=== PATIENT | female | born 1975 | race African-American/Black ===

== ENCOUNTER 2017-07-05 15:01 | Emergency (ER) | payer BC, SELFPAY ==
--- NOTE | 2017-07-05 16:17 | RAD ---
FOUR VIEWS RIGHT KNEE: Date: 07-05-17 History: Injury to right knee after a fall two weeks ago. FINDINGS: There is no evidence of fracture, dislocation, or other osseous abnormality involving the right knee. No joint space narrowing is seen. IMPRESSION: No acute osseous abnormality right knee. POS: [facility]
== END 2017-07-05 16:00 | disposition home or self-care (01) ==
LOC: MADERS 15:01
DX: S80.01XA Contusion of right knee, initial encounter (principal); F32.9 Major depressive disorder, single episode, unspecified; F41.9 Anxiety disorder, unspecified; W19.XXXA Unspecified fall, initial encounter

== ENCOUNTER 2017-09-04 12:53 | Emergency (ER) | payer BC ==
[~2017-09-04 12:53] MED LIST: Sodium Chloride 0.9% 1,000 ML BAG ONE
[2017-09-04 13:23] LABS: Bilirubin Negative (Negative); Blood, Urine Negative (Negative); Clarity Clear (Clear); Glucose, Urine (Dipstick) Negative (Negative); Leukocyte Moderate (Negative); Nitrite Negative (Negative); Protein, Urine (Dipstick) Negative (Neg-Trace); Urobilinogen 0.2 mg/dL (0.2-1.0)
[2017-09-04 13:24] LABS: Specific Gravity, Urine 1.003 (1.002-1.036)
[2017-09-04 13:40] LABS: RBC/HPF 0-3 HPF (0-3)
[2017-09-04 13:41] LABS: Bacteria/HPF Rare-Few HPF (None Seen)
[2017-09-04] MEDS ORDERED: Ondansetron HCl/PF 4 MG/2 ML Vial ONE (13:57)
[2017-09-04] MEDS ORDERED: Morphine 10 MG/ML VIAL ONE (13:57)
[2017-09-04 13:59] LABS: #Basophils 0.1 thou/uL (0.0-0.2); #Lymphocytes 1.9 thou/uL (1.20-3.40); #Monocytes 0.4 thou/uL (0.11-0.59); #Neutrophils 3.1 thou/uL (1.40-6.50); %Basophils 1.2 % (0.0-1.0); %Eosinophils 0.9 % (0.0-10.0); Hemoglobin 12.6 g/dL (12.0-16.0); Mean Corpuscular HGB CONC 32.2 g/dL (32.0-36.0); Mean Corpuscular Hemoglobin 27.7 pg (27.0-31.0); Mean Platelet Volume 6.7 fL (7.4-10.4); Platelet Count 234 thou/uL (130-400); RBC Distribution Width 13.2 % (11.5-14.5); Red Blood Cell (RBC) Count 4.55 mill/uL (4.20-5.40); White Blood Cell (WBC) Count 5.4 thou/uL (4.8-10.8)
[2017-09-04 14:04] LABS: BHCG - Serum Negative (NEGATIVE); Pregs Control Background? CLEAR/WHITE (CLR/WHITE); Pregs Control Bar Appear? YES (CONTROL BAR)
[2017-09-04 14:14] LABS: ALT (SGPT) 12 U/L (8-55); AST (SGOT) 12 U/L (5-34); Albumin 3.8 g/dL (3.5-5.0); Alkaline Phosphatase 55 U/L (40-150); Anion Gap 12 mmol/L (10-20); BUN (Urea Nitrogen) 12 mg/dL (7.0-18.7); Bilirubin, Total 0.3 mg/dL (0.2-1.2); Calc. Creatinine Clearance 0 mL/min (70-130); Carbon Dioxide 22 mmol/L (22-29); Chloride 108 mmol/L (98-107); Estimated GFR-MDRD Greater than 90; Glucose 88 mg/dL (70-105); Lipase 18 U/L (8-78); Potassium 3.8 mmol/L (3.5-5.1); Protein, Total 7.8 g/dL (6.0-8.3); Sodium 138 mmol/L (136-145)
--- NOTE | 2017-09-04 14:27 | CT ---
CT ABDOMEN AND PELVIS WITHOUT CONTRAST: HISTORY: Left lower quadrant abdominal pain. COMPARISON: CT from 2011. FINDINGS: In the right lung base is a small cluster of centrilobular nodules, likely post-infectious in nature series 2 image 4. No pericardial effusion. Prior cholecystectomy. There are multiple nonobstructive left-sided renal calculi measuring up to 3 mm. No hydroureteral nephrosis. No right-sided calculi are appreciated on today's examination. The urinary bladder is unremarkable. Similar to the comparison examination are mildly prominent bilateral superficial inguinal lymph nodes . The aortoiliac contour is nonaneurysmal. Appendix is visualized and is normal. IMPRESSION: 1. Nonobstructive left-sided renal calculi. 2. No hydroureteral nephrosis or secondary evidence for a recently passed stone. 3. Normal appendix. POS: [facility]
[2017-09-04] MEDS ORDERED: diphenhydrAMINE 50 MG/ML VIAL ONE (15:27)
== END 2017-09-04 15:45 | disposition home or self-care (01) ==
LOC: MADERS 12:53
DX: R10.32 Left lower quadrant pain (principal); F41.9 Anxiety disorder, unspecified; F32.9 Major depressive disorder, single episode, unspecified; B20 Human immunodeficiency virus [HIV] disease; Z79.899 Other long term (current) drug therapy
CPT/HCPCS: 36415; 74176; 80053; 81003; 81015; 83690; 84484; 84703; 85025; 87086; 93005; 96361; 96374; 96375; J1200; J2270; J2405; J7050

== ENCOUNTER 2017-09-30 16:06 | Emergency (ER) | payer BC ==
[2017-09-30] MEDS ORDERED: Lorazepam 2 MG/ML VIAL ONE (16:29)
[2017-09-30 16:37] LABS: #Basophils 0.1 thou/uL (0.0-0.2); #Eosinphils 0.1 thou/uL (0.0-0.7); #Lymphocytes 2.7 thou/uL (1.20-3.40); #Monocytes 0.7 thou/uL (0.11-0.59); #Neutrophils 4.7 thou/uL (1.40-6.50); %Basophils 0.9 % (0.0-1.0); %Eosinophils 1.2 % (0.0-10.0); %Lymphocytes 32.8 % (21.0-51.0); %Monocytes 8.3 % (0.0-10.0); %Neutrophils 56.8 % (42.0-75.0); Hemoglobin 12.2 g/dL (12.0-16.0); Mean Corpuscular HGB CONC 33.2 g/dL (32.0-36.0); Mean Corpuscular Hemoglobin 28.9 pg (27.0-31.0); Mean Corpuscular Volume 86.9 fL (78.0-98.0); Mean Platelet Volume 7.3 fL (7.4-10.4); Platelet Count 244 thou/uL (130-400); Red Blood Cell (RBC) Count 4.22 mill/uL (4.20-5.40); White Blood Cell (WBC) Count 8.3 thou/uL (4.8-10.8)
[2017-09-30 16:56] LABS: Bilirubin Negative (Negative); Blood, Urine Moderate (Negative); Clarity Clear (Clear); Glucose, Urine (Dipstick) Negative (Negative); Leukocyte Trace (Negative); Nitrite Negative (Negative); Protein, Urine (Dipstick) Negative (Neg-Trace); Specific Gravity, Urine 1.026 (1.002-1.036); pH, Urine 5.5 (5.0-9.0)
[2017-09-30 16:57] LABS: ALT (SGPT) 11 U/L (8-55); AST (SGOT) 9 U/L (5-34); Albumin 3.7 g/dL (3.5-5.0); Alkaline Phosphatase 68 U/L (40-150); Anion Gap 16 mmol/L (10-20); BUN (Urea Nitrogen) 12 mg/dL (7.0-18.7); Bilirubin, Total 0.4 mg/dL (0.2-1.2); Calc. Creatinine Clearance 0 mL/min (70-130); Calcium 9.2 mg/dL (7.8-10.44); Carbon Dioxide 17 mmol/L (22-29); Chloride 110 mmol/L (98-107); Estimated GFR-MDRD 87; Globulin 3.8 g/dL (2.4-3.5); Glucose 102 mg/dL (70-105); Potassium 3.6 mmol/L (3.5-5.1); Protein, Total 7.5 g/dL (6.0-8.3); Sodium 139 mmol/L (136-145)
[2017-09-30 16:58] LABS: Acetaminophen Less than 6.0 mcg/mL (10.0-30.0); Alcohol Less than 10 mg/dL (Less than 10); Salicylate Less than 8.0 mg/dL (15.0-30.0)
[2017-09-30 17:01] LABS: Bacteria/HPF Rare-Few HPF (None Seen); Crystals/HPF 2+ AMORPH URATES HPF (Negative)
[2017-09-30 17:02] LABS: Amphetamine Not Detected (NotDetected); Barbiturates Screen Not Detected (NotDetected); Benzodiazepine Screen Detected (NotDetected); Cocaine Metabolite Screen Not Detected (NotDetected); Medtox Control Line Valid? VALID (VALID); Methadone Not Detected (NotDetected); Methamphetamine Not Detected (NotDetected); Opiate Screen Not Detected (NotDetected); Oxycodone Screen Not Detected (NotDetected); Phencyclidine (PCP) Not Detected (NotDetected); THC/Cannabinoid Screen Not Detected (NotDetected); Tricyclic Screen Not Detected (NotDetected)
[2017-09-30] MEDS ORDERED: Ketorolac Tromethamine 60 MG/2 ML VIAL ONE (19:42)
== END 2017-09-30 20:50 | disposition home or self-care (01) ==
LOC: MADERS 16:06
DX: F41.9 Anxiety disorder, unspecified (principal); R45.851 Suicidal ideations; Z79.899 Other long term (current) drug therapy; Z79.891 Long term (current) use of opiate analgesic
CPT/HCPCS: 36415; 80053; 80306; 80307; 81003; 81015; 85025; 96372; J1885; J2060

== ENCOUNTER 2017-11-19 22:18 | Emergency (ER) | payer BC ==
[~2017-11-19 22:18] MED LIST changes: +Iopamidol 370 76% 125 ML VIAL FS ONE; +Sodium Chloride 0.9% 100 ML BAG ONE
[2017-11-19] MEDS ORDERED: Lorazepam 2 MG/ML VIAL ONE (23:02)
[2017-11-19] MEDS ORDERED: Prochlorperazine 10 MG/2 ML VIAL ONE (23:03)
[2017-11-19 23:09] LABS: #Basophils 0.1 thou/uL (0.0-0.2); #Eosinphils 0.1 thou/uL (0.0-0.7); #Lymphocytes 2.5 thou/uL (1.20-3.40); #Monocytes 0.7 thou/uL (0.11-0.59); #Neutrophils 6.2 thou/uL (1.40-6.50); %Basophils 0.6 % (0.0-1.0); %Eosinophils 0.9 % (0.0-10.0); %Lymphocytes 26.5 % (21.0-51.0); %Neutrophils 65.1 % (42.0-75.0); Hemoglobin 12.3 g/dL (12.0-16.0); Mean Corpuscular HGB CONC 34.2 g/dL (32.0-36.0); Mean Corpuscular Hemoglobin 30.5 pg (27.0-31.0); Mean Corpuscular Volume 89.2 fL (78.0-98.0); Mean Platelet Volume 7.3 fL (7.4-10.4); Platelet Count 283 thou/uL (130-400); RBC Distribution Width 12.7 % (11.5-14.5); Red Blood Cell (RBC) Count 4.03 mill/uL (4.20-5.40); White Blood Cell (WBC) Count 9.5 thou/uL (4.8-10.8)
--- NOTE | 2017-11-19 23:21 | RAD ---
PORTABLE UPRIGHT FRONTAL CHEST RADIOGRAPH: 11/19/2017 HISTORY: Chest pain. COMPARISON: 08/01/2012 FINDINGS: The lungs are clear. The heart and mediastinal contour is unremarkable. IMPRESSION: No acute findings. POS: [facility]
[2017-11-19 23:27] LABS: ALT (SGPT) 14 U/L (8-55); AST (SGOT) 15 U/L (5-34); Alkaline Phosphatase 54 U/L (40-150); Anion Gap 12 mmol/L (10-20); BUN (Urea Nitrogen) 15 mg/dL (7.0-18.7); Bilirubin, Total 0.3 mg/dL (0.2-1.2); Calc. Creatinine Clearance 0 mL/min (70-130); Carbon Dioxide 23 mmol/L (22-29); Chloride 108 mmol/L (98-107); Estimated GFR-MDRD 67; Globulin 3.7 g/dL (2.4-3.5); Glucose 95 mg/dL (70-105); Protein, Total 7.7 g/dL (6.0-8.3); Sodium 139 mmol/L (136-145)
[2017-11-19 23:28] LABS: CKMB 0.9 ng/mL (0-6.6); Troponin I Less than 0.010 ng/mL (< 0.028)
[2017-11-19] MEDS ORDERED: diphenhydrAMINE 12.5 MG/5 ML UDCUP ONE (23:28)
[2017-11-19] MEDS ORDERED: diphenhydrAMINE 50 MG/ML VIAL ONE (23:29)
[2017-11-19 23:44] LABS: Bilirubin Negative (Negative); Blood, Urine Trace (Negative); Clarity Clear (Clear); Glucose, Urine (Dipstick) Negative (Negative); Leukocyte Trace (Negative); Nitrite Negative (Negative); Protein, Urine (Dipstick) Negative (Neg-Trace); Specific Gravity, Urine 1.015 (1.005-1.030)
[2017-11-19 23:45] LABS: Bacteria/HPF None Seen HPF (None Seen); Pregnancy Test - Urine (BHCG) Negative (Negative); Pregu Control Background? CLEAR/WHITE (CLR/WHITE); Pregu Control Bar Appear? YES (CONTROL BAR); RBC/HPF 0-3 HPF (0-3); Specific Gravity 1.015 (1.002-1.036); WBC/HPF 0-3 HPF (0-3)
--- NOTE | 2017-11-20 08:36 | CT ---
PRELIMINARY REPORT/[facility]/EMERGENTY AFTER-HOURS PROCEDURE CT Angiography Chest With Intravenous Contrast EXAM DATE/TIME: 11/20/2017 12:02 AM CLINICAL HISTORY: 42 years old, female; Pain; Chest pain TECHNIQUE: Axial computed tomographic angiography images of the chest with intravenous contrast using CT angiogr aphy protocol. Coronal and sagittal reformatted images were created and reviewed. MIP reconstructed i mages were created and reviewed. CONTRAST: 120 ml of ISOVUE 370 administered intravenously. COMPARISON: No relevant prior studies available. FINDINGS: Pulmonary arteries: Normal. No pulmonary emboli. Aorta: Normal. No aortic aneurysm. No aortic dissection. Lungs: Cluster of small nodules in the anteromedial left lung apex could be sequela of prior infectio n or could represent active bronchiolitis. Indeterminate 5 mm right lower lobe pulmonary nodule. Pleural space: Normal. No pneumothorax. No pleural effusion. Heart: Normal. No cardiomegaly. No pericardial effusion. Mediastinum: Esophagus is unremarkable. Bones/joints: Unremarkable. No acute fracture. Soft tissues: Unremarkable. Lymph nodes: Unremarkable. No enlarged lymph nodes. Gallbladder and bile ducts: Prior cholecystectomy. IMPRESSION: 1. Cluster of small nodules in the anteromedial left lung apex could be sequela of prior infection or could represent active bronchiolitis. 2. Indeterminate 5 mm right lower lobe pulmonary nodule. Thank you for allowing us to participate in the care of your patient. Dictated and Authenticated by: Blas Paniagua MD 11/20/2017 12:51 AM Central Time ([place] & [place]) FINAL REPORT CTA CHEST: FINDINGS: No evidence of pulmonary embolus identified. There is a 5 mm nodule in the posterior right lung base. There is nonspecific nodularity in the left lung apex. These findings were described on the preliminary report and I am in agreement with that report. POS: [facility]
== END 2017-11-20 01:13 | disposition home or self-care (01) ==
LOC: MADERS 22:18
DX: F41.1 Generalized anxiety disorder (principal); B20 Human immunodeficiency virus [HIV] disease; Z87.442 Personal history of urinary calculi
CPT/HCPCS: 36415; 71045; 71275; 80053; 81003; 81015; 81025; 82553; 84484; 85025; 85379; 93005; 96365; 96366; 96375; J0780; J1200; J2060; J7050

== ENCOUNTER 2017-11-30 00:28 | Emergency (ER) | payer BC ==
[2017-11-30] MEDS ORDERED: Ondansetron HCl/PF 4 MG/2 ML Vial ONE (01:24)
[2017-11-30] MEDS ORDERED: Ketorolac Tromethamine 30 MG/ML VIAL ONE (01:25)
[2017-11-30 01:41] LABS: Bilirubin Negative (Negative); Blood, Urine Trace (Negative); Clarity Other (Clear); Glucose, Urine (Dipstick) Negative (Negative); Leukocyte Moderate (Negative); Nitrite Negative (Negative); Protein, Urine (Dipstick) Trace mg/dL (Neg-Trace); Specific Gravity, Urine 1.025 (1.005-1.030); pH, Urine 5.5 (5.0-9.0)
[2017-11-30 01:43] LABS: #Basophils 0.1 thou/uL (0.0-0.2); #Eosinphils 0.1 thou/uL (0.0-0.7); #Lymphocytes 2.3 thou/uL (1.20-3.40); #Monocytes 0.7 thou/uL (0.11-0.59); #Neutrophils 4.6 thou/uL (1.40-6.50); %Basophils 1.1 % (0.0-1.0); %Eosinophils 0.8 % (0.0-10.0); %Lymphocytes 29.7 % (21.0-51.0); %Monocytes 9.1 % (0.0-10.0); %Neutrophils 59.2 % (42.0-75.0); Hemoglobin 12.6 g/dL (12.0-16.0); Mean Corpuscular Hemoglobin 29.3 pg (27.0-31.0); Mean Corpuscular Volume 91.4 fL (78.0-98.0); Mean Platelet Volume 7.1 fL (7.4-10.4); Platelet Count 306 thou/uL (130-400); RBC Distribution Width 12.8 % (11.5-14.5); White Blood Cell (WBC) Count 7.8 thou/uL (4.8-10.8)
[2017-11-30 01:53] LABS: Bacteria/HPF 3+ HPF (None Seen); Pregnancy Test - Urine (BHCG) Negative (Negative); Pregu Control Background? CLEAR/WHITE (CLR/WHITE); Pregu Control Bar Appear? YES (CONTROL BAR); Specific Gravity 1.025 (1.002-1.036); Squamous Epithelial 21-50 HPF (0-3); Yeast-All Forms 1+ HPF (None Seen)
[2017-11-30 01:54] LABS: Amphetamine Not Detected (NotDetected); Barbiturates Screen Not Detected (NotDetected); Benzodiazepine Screen Detected (NotDetected); Cocaine Metabolite Screen Not Detected (NotDetected); Medtox Control Line Valid? VALID (VALID); Methadone Not Detected (NotDetected); Methamphetamine Not Detected (NotDetected); Opiate Screen Detected (NotDetected); Oxycodone Screen Not Detected (NotDetected); Phencyclidine (PCP) Not Detected (NotDetected); THC/Cannabinoid Screen Not Detected (NotDetected); Tricyclic Screen Not Detected (NotDetected)
[2017-11-30 01:59] LABS: ALT (SGPT) 104 U/L (8-55); AST (SGOT) 259 U/L (5-34); Albumin 4.3 g/dL (3.5-5.0); Alkaline Phosphatase 98 U/L (40-150); Anion Gap 14 mmol/L (10-20); BUN (Urea Nitrogen) 10 mg/dL (7.0-18.7); Bilirubin, Total 0.5 mg/dL (0.2-1.2); Calc. Creatinine Clearance 0 mL/min (70-130); Calcium 9.6 mg/dL (7.8-10.44); Carbon Dioxide 26 mmol/L (22-29); Chloride 103 mmol/L (98-107); Estimated GFR-MDRD 80; Globulin 4.5 g/dL (2.4-3.5); Glucose 102 mg/dL (70-105); Lipase 14 U/L (8-78); Potassium 3.6 mmol/L (3.5-5.1); Protein, Total 8.8 g/dL (6.0-8.3); Sodium 139 mmol/L (136-145)
[2017-11-30 02:07] LABS: CKMB 0.6 ng/mL (0-6.6); Troponin I Less than 0.010 ng/mL (< 0.028)
[2017-11-30] MEDS ORDERED: Piperacillin/Tazobactam 3.375 GM VIAL ONE (02:21)
[2017-11-30] MEDS ORDERED: diphenhydrAMINE 50 MG/ML VIAL ONE (03:08)
[2017-11-30] MEDS ORDERED: Morphine 4 MG/ML VIAL ONE (03:08)
--- NOTE | 2017-11-30 08:32 | RAD ---
TWO VIEWS CHEST: DATE: 11/30/2017. PROVIDED CLINICAL HISTORY: Left upper quadrant and left flank pain. FINDINGS: Comparison is made with the study dated 01/03/2013. Cardiac and mediastinal silhouette is within nor mal limits. Lungs appear clear. No pleural fluid or pneumothorax apparent. IMPRESSION: No evidence for an acute cardiopulmonary process. POS: [facility]
--- NOTE | 2017-11-30 09:41 | CT ---
PRELIMINARY REPORT/[facility]/EMERGENTY AFTER-HOURS PROCEDURE CT Abdomen and Pelvis With Intravenous Contrast CLINICAL HISTORY: 42 years old, female; Pain; Abdominal pain; Localized; Left; Patient HX: Abdomen pain more to lt side . HX of kidney stones TECHNIQUE: Axial computed tomography images of the abdomen and pelvis with intravenous contrast. All CT scans at this facility use at least one of these dose optimization techniques: automated exposure control; mA and/or kV adjustment per patient size (includes targeted exams where dose is matched to clinical indication); or iterative reconstruction. CONTRAST: 96 mL of ISOVUE 370 administered intravenously. COMPARISON: No relevant prior studies available. FINDINGS: The lung bases are clear. Several small left intrarenal calculi. No hydronephrosis of either kidney. No visible ureteral calculus. No perinephric fluid. Couple of probable small left renal cysts. Prior cholecystectomy, no significant biliary tree dilation. Unremarkable appearance of the liver, spleen, adrenal glands, and pancreas. No free air, ascites, or bowel distention. No evidence for abdominal aortic aneurysm. There are a few borderline prominent retroperitoneal/periaortic lymph nodes, a nonspecific appearance . CT pelvis: The appendix is visualized and appears normal. There are no CT findings to strongly suggest diverticulitis. Possible 15 mm dominant follicle versus very small cyst in the left ovary. Significance uncertain/unl ikely due to small size. No cul-de-sac fluid. IMPRESSION: Several small left intrarenal calculi. No hydronephrosis of either kidney. No visible ureteral calculus. No diverticulitis. Normal appendix. No free air or bowel distention. Possible 15 mm dominant follicle versus very small cyst in the left ovary. Significance uncertain/unl ikely due to small size. No cul-de-sac fluid. Other findings discussed above. Thank you for allowing us to participate in the care of your patient. Dictated and Authenticated by: Filipe Cordova MD 11/30/2017 4:04 AM Central Time ([place] & [place]) FINAL REPORT EMERGENT AFTER HOURS CT ABDOMEN AND PELVIS WITH IV CONTRAST: DATE: 11/30/2017. HISTORY: Abdominal pain. History of kidney stones. COMPARISON: 09/04/2017. IMPRESSION: 1. Nonobstructing approximately 3 mm calculus mid portion left kidney with punctate nonobstructing c alculi in the inferior pole left kidney. 2. Post cholecystectomy changes. 3. No CT evidence of appendicitis. 4. Subcentimeter too small to characterize hypodense lesions in the left kidney. 5. Nonspecific mildly prominent left paraaortic lymph nodes. Lymph nodes are stable compared to the study on 09/04/2017. 6. Incomplete visualization of what appears to be nodular densities at the posteromedial right lung base. However, recent CT angiogram of the chest on 11/20/2017 did demonstrate a pulmonary nodule in t his region. 7. Small left ovarian cyst/dominant follicle. 8. Findings are in agreement with the preliminary report by [facility]. POS: [facility]
[2017-11-30] MEDS ORDERED: Iopamidol 370 76% 100 ML VIAL ONE (11:37)
[2017-11-30] MEDS ORDERED: Sodium Chloride 0.9% 100 ML BAG ONE (13:50)
== END 2017-11-30 03:25 | disposition short-term general hospital (02) ==
LOC: MADERS 00:28
DX: N12 Tubulo-interstitial nephritis, not specified as acute or chronic (principal); R79.89 Other specified abnormal findings of blood chemistry; B20 Human immunodeficiency virus [HIV] disease; F32.9 Major depressive disorder, single episode, unspecified; F41.9 Anxiety disorder, unspecified; Z79.899 Other long term (current) drug therapy
CPT/HCPCS: 36415; 71046; 74177; 80053; 80306; 81003; 81015; 81025; 82553; 83605; 83690; 84484; 85025; 87040; 93005; 94760; 96365; 96375; J1200; J1885; J2270; J2405; J2543; J7050

== ENCOUNTER 2017-12-15 12:46 | Emergency (ER) | payer BC ==
[2017-12-15] MEDS ORDERED: Dexamethasone 4 mg/ml Vial ONE (13:13)
== END 2017-12-15 13:29 | disposition home or self-care (01) ==
LOC: MADERS 12:46
DX: S20.329A Blister (nonthermal) of unspecified front wall of thorax, initial encounter (principal); S40.821A Blister (nonthermal) of right upper arm, initial encounter; F41.9 Anxiety disorder, unspecified; Z79.899 Other long term (current) drug therapy; Z87.442 Personal history of urinary calculi; Z79.891 Long term (current) use of opiate analgesic; X58.XXXA Exposure to other specified factors, initial encounter
CPT/HCPCS: 96372; J1100

== ENCOUNTER 2018-02-24 13:16 | Emergency (ER) | payer BC | END 2018-02-24 14:25 | disposition home or self-care (01) | LOC: MADERS 13:16 | DX: J02.9 Acute pharyngitis, unspecified (principal); B20 Human immunodeficiency virus [HIV] disease; F41.9 Anxiety disorder, unspecified; F17.210 Nicotine dependence, cigarettes, uncomplicated; Z87.442 Personal history of urinary calculi; Z79.891 Long term (current) use of opiate analgesic; Z79.899 Other long term (current) drug therapy | CPT/HCPCS: 87081; 87430; 99283 ==

== ENCOUNTER 2018-05-28 14:14 | Emergency (ER) | payer BC ==
[2018-05-28 14:43] LABS: #Lymphocytes 1.8 thou/uL (1.20-3.40); #Monocytes 0.6 thou/uL (0.11-0.59); #Neutrophils 6.7 thou/uL (1.40-6.50); %Basophils 0.4 % (0.0-1.0); %Eosinophils 0.4 % (0.0-10.0); %Lymphocytes 19.8 % (21.0-51.0); %Monocytes 6.3 % (0.0-10.0); %Neutrophils 73.1 % (42.0-75.0); Hemoglobin 12.2 g/dL (12.0-16.0); Mean Corpuscular Volume 90.6 fL (78.0-98.0); Mean Platelet Volume 7.3 fL (7.4-10.4); Platelet Count 266 thou/uL (130-400); RBC Distribution Width 12.8 % (11.5-14.5); Red Blood Cell (RBC) Count 4.21 mill/uL (4.20-5.40); White Blood Cell (WBC) Count 9.1 thou/uL (4.8-10.8)
[2018-05-28 15:00] LABS: ALT (SGPT) 7 U/L (8-55); AST (SGOT) 10 U/L (5-34); Alkaline Phosphatase 66 U/L (40-150); Anion Gap 14 mmol/L (10-20); BUN (Urea Nitrogen) 10 mg/dL (7.0-18.7); Bilirubin, Total 0.4 mg/dL (0.2-1.2); Calc. Creatinine Clearance 0 mL/min (70-130); Calcium 9.3 mg/dL (7.8-10.44); Carbon Dioxide 20 mmol/L (22-29); Chloride 107 mmol/L (98-107); Estimated GFR-MDRD 81; Glucose 113 mg/dL (70-105); Sodium 137 mmol/L (136-145)
--- NOTE | 2018-05-28 15:06 | RAD ---
EXAM: 3 views of the left shoulder HISTORY: Shoulder pain after injury during seizure COMPARISON: 01/24/2004 FINDINGS: There is no evidence of acute fracture or dislocation. No degenerative changes are present. No soft tissue swelling is seen. The visualized thorax is unremarkable. IMPRESSION: No evidence of acute osseous abnormality.
[2018-05-28] MEDS ORDERED: HYDROcodone/Acetaminophen 5/325 mg Tablet ONE (15:07)
--- NOTE | 2018-05-28 15:10 | RAD ---
Chest one view HISTORY: Seizure. Chest injury. COMPARISON: 11/19/2017. FINDINGS: Cardiac silhouette is magnified by projection. Pulmonary vasculature is unremarkable. Media stinum is midline. No lobar consolidation or evidence of pneumothorax. IMPRESSION: No active cardiopulmonary abnormalities are demonstrated.
[2018-05-28 15:39] LABS: Bilirubin Negative (Negative); Blood, Urine Trace (Negative); Glucose, Urine (Dipstick) Negative (Negative); Leukocyte Negative (Negative); Nitrite Negative (Negative); Protein, Urine (Dipstick) 30 mg/dL (Neg-Trace)
[2018-05-28 15:44] LABS: Clarity Hazy (Clear); Specific Gravity, Urine 1.023 (1.002-1.036)
[2018-05-28 15:45] LABS: Pregnancy Test - Urine (BHCG) Negative (Negative); Pregu Control Background? CLEAR/WHITE (CLR/WHITE); Pregu Control Bar Appear? YES (CONTROL BAR); Specific Gravity 1.023 (1.002-1.036)
[2018-05-28 15:47] LABS: Bacteria/HPF Rare-Few HPF (None Seen); RBC/HPF 0-3 HPF (0-3)
[2018-05-28] MEDS ORDERED: Ondansetron ODT 4 MG TAB ONE (15:55)
--- NOTE | 2018-05-28 16:20 | CT ---
CT head noncontrast HISTORY: Seizure. Head injury. COMPARISON: 11/13/2011. FINDINGS: There is no evidence of acute intracranial hemorrhage or infarct. No mass effect or shift o f midline structures. Cavum septum pellucidum is apparent. Visualized paranasal sinuses remain well-aerated. IMPRESSION: No acute intracranial abnormalities are demonstrated.
--- NOTE | 2018-05-28 16:23 | CT ---
CT cervical spine noncontrast HISTORY: Seizure. Neck injury. FINDINGS: Vertebral body heights are maintained. Gentle reversal of the normal lordotic curvature. Mi ld osteophytosis throughout the vertebral bodies and facets. Cervicothoracic junction is intact. No acute fracture or dislocation. IMPRESSION: Mild degenerative changes cervical spine. No acute osseous abnormalities are demonstrated .
[2018-05-28] MEDS ORDERED: levETIRAcetam 500 MG TAB ONE (16:43)
== END 2018-05-28 17:09 | disposition home or self-care (01) ==
LOC: MADERS 14:14
DX: G40.909 Epilepsy, unspecified, not intractable, without status epilepticus (principal); S43.401A Unspecified sprain of right shoulder joint, initial encounter; B20 Human immunodeficiency virus [HIV] disease; F41.9 Anxiety disorder, unspecified; F17.210 Nicotine dependence, cigarettes, uncomplicated; Z79.899 Other long term (current) drug therapy; Z87.442 Personal history of urinary calculi; W22.8XXA Striking against or struck by other objects, initial encounter
CPT/HCPCS: 36415; 70450; 71045; 72125; 80053; 81003; 81015; 81025; 83605; 85025; Q0162

== ENCOUNTER 2021-11-28 23:29 | Emergency (ER) | payer OTHER ==
[~2021-11-28 23:29] MED LIST changes: +Iopamidol 370 76% 100 ML VIAL ONE; -Iopamidol 370 76% 125 ML VIAL FS ONE; -Sodium Chloride 0.9% 1,000 ML BAG ONE; -Sodium Chloride 0.9% 100 ML BAG ONE
[2021-11-29 00:02] LABS: Bilirubin Negative (Negative); Blood, Urine Trace (Negative); Clarity Clear (Clear); Glucose, Urine (Dipstick) Negative (Negative); Ketone, Urine Negative (Negative); Leukocyte Negative (Negative); Nitrite Negative (Negative); Protein, Urine (Dipstick) Negative (Neg-Trace)
[2021-11-29 00:06] LABS: Pregnancy Test - Urine (BHCG) Negative (Negative); Pregu Control Background? CLEAR/WHITE (CLR/WHITE); Pregu Control Bar Appear? YES (CONTROL BAR); Specific Gravity 1.015 (1.002-1.036)
[2021-11-29 00:10] LABS: Bacteria/HPF 1+ HPF (None Seen)
[2021-11-29 00:21] LABS: #Basophils 0.1 thou/uL (0.0-0.2); #Eosinphils 0.2 thou/uL (0.0-0.7); #Monocytes 0.4 thou/uL (0.11-0.59); #Neutrophils 1.4 thou/uL (1.40-6.50); %Basophils 2.5 % (0.0-1.0); %Eosinophils 4.1 % (0.0-10.0); %Lymphocytes 49.5 % (21.0-51.0); %Neutrophils 34.9 % (42.0-75.0); Hemoglobin 11.9 g/dL (12.0-16.0); Mean Corpuscular HGB CONC 33.1 g/dL (32.0-36.0); Mean Corpuscular Hemoglobin 29.2 pg (27.0-31.0); Mean Corpuscular Volume 88.1 fL (78.0-98.0); Mean Platelet Volume 8.5 fL (7.4-10.4); Platelet Count 205 thou/uL (130-400); RBC Distribution Width 11.9 % (11.5-14.5); Red Blood Cell (RBC) Count 4.07 mill/uL (4.20-5.40)
[2021-11-29] MEDS ORDERED: Sodium Chloride 0.9% 1,000 ML ONE (00:25)
[2021-11-29] MEDS ORDERED: Ketorolac Tromethamine 30 MG/ML VIAL ONE (00:25)
[2021-11-29] MEDS ORDERED: Ondansetron PF 4 MG/2 ML Vial ONE (00:25)
[2021-11-29 00:40] LABS: ALT (SGPT) 20 U/L (8-55); AST (SGOT) 26 U/L (5-34); Albumin 3.9 g/dL (3.5-5.0); Alkaline Phosphatase 51 U/L (40-110); Anion Gap 13 mmol/L (10-20); BUN (Urea Nitrogen) 11 mg/dL (7.0-18.7); Bilirubin, Total 0.3 mg/dL (0.2-1.2); Calc. Creatinine Clearance 0 mL/min (70-130); Calcium 8.8 mg/dL (7.8-10.44); Carbon Dioxide 21 mmol/L (22-29); Chloride 108 mmol/L (98-107); Estimated GFR 90; Globulin 4.5 g/dL (2.4-3.5); Glucose 87 mg/dL (70-105); Lipase 22 U/L (8-78); Potassium 3.9 mmol/L (3.5-5.1); Protein, Total 8.4 g/dL (6.0-8.3); Sodium 138 mmol/L (136-145)
== END 2021-11-29 01:42 | disposition left against medical advice (07) ==
LOC: MADERS 23:29
DX: R10.13 Epigastric pain (principal); B20 Human immunodeficiency virus [HIV] disease; F17.210 Nicotine dependence, cigarettes, uncomplicated; Z87.442 Personal history of urinary calculi; Z79.899 Other long term (current) drug therapy
CPT/HCPCS: 74177; 80053; 81003; 81015; 81025; 83690; 83735; 85025; 87804; 96374; J1885; J2405; J7050; Q9967

== ENCOUNTER 2023-03-12 13:44 | Emergency (ER) | payer BC, OTHER, SELFPAY ==
[2023-03-12] MEDS ORDERED: Cefepime 2 GM VIAL ONE (14:14)
[2023-03-12] MEDS ORDERED: Ondansetron PF 4 MG/2 ML Vial ONE (14:14)
[2023-03-12 14:46] LABS: ALT (SGPT) 15 U/L (8-55); AST (SGOT) 25 U/L (5-34); Albumin 3.7 g/dL (3.5-5.0); Alkaline Phosphatase 62 U/L (40-110); Anion Gap 14 mmol/L (10-20); BUN (Urea Nitrogen) 30 mg/dL (7.0-18.7); Bilirubin, Total 0.3 mg/dL (0.2-1.2); Calc. Creatinine Clearance 0 mL/min (70-130); Calcium 9.1 mg/dL (7.8-10.44); Carbon Dioxide 19 mmol/L (22-29); Chloride 112 mmol/L (98-107); Estimated GFR 64; Globulin 5.3 g/dL (2.4-3.5); Glucose 88 mg/dL (70-105); Lipase 29 U/L (8-78); Potassium 3.9 mmol/L (3.5-5.1); Sodium 141 mmol/L (136-145)
[2023-03-12 14:55] LABS: Hematocrit 33.2 % (36.0-47.0); Hemoglobin 10.9 g/dL (12.0-16.0); Mean Corpuscular HGB CONC 32.8 g/dL (32.0-36.0); Mean Corpuscular Hemoglobin 28.5 pg (27.0-31.0); Mean Platelet Volume 9.4 fL (7.4-10.4); Platelet Count 140 10x3/uL (130-400); RBC Distribution Width 13.6 % (11.5-14.5); Red Blood Cell (RBC) Count 3.81 mill/uL (4.20-5.40); White Blood Cell (WBC) Count 6.1 10x3/uL (4.8-10.8)
[2023-03-12 14:59] LABS: Band 2 % (5-11); MDiff Complete? YES; Manual Diff?? YES; Neutrophil 69 % (42-75)
[2023-03-12 15:00] LABS: Hypochromia SLIGHT = 6-15 cells (100X) (0-5/hpf); Lymphocytes 13 % (21-51); Monocytes 10 % (0-10); Platelet Adequacy Comment Appears Adequate; Reactive Lymphocytes 6 % (0-10)
[2023-03-12 15:14] LABS: SARS-CoV-2 NAA Rapid Test Not Detected (NotDetected)
[2023-03-12 15:24] LABS: Bilirubin Negative (Negative); Blood, Urine Trace (Negative); Clarity Clear (Clear); Glucose, Urine (Dipstick) Negative (Negative); Ketone, Urine Trace mg/dL (Negative); Leukocyte Small (Negative); Nitrite Negative (Negative); Protein, Urine (Dipstick) 100 mg/dL (Neg-Trace)
[2023-03-12 15:31] LABS: Bacteria/HPF Rare-Few HPF (None Seen); CAUTI Indications for Culture Fever or rigors; Mucous/LPF Few LPF (<2+)
[2023-03-12 15:32] LABS: Urine Culture Reflex No No
[2023-03-12] MEDS ORDERED: Pantoprazole 40 MG VIAL ONE (15:45)
[2023-03-12] MEDS ORDERED: Acetaminophen 325 MG TAB ONE (15:45)
[2023-03-12] MEDS ORDERED: Vancomycin 1 GM VIAL ONE (15:45)
[2023-03-12] MEDS ORDERED: Morphine 4 MG/ML VIAL ONE (16:54)
== END 2023-03-12 18:23 | disposition short-term general hospital (02) ==
LOC: MADERS 13:44
DX: K92.2 Gastrointestinal hemorrhage, unspecified (principal); D64.9 Anemia, unspecified; B20 Human immunodeficiency virus [HIV] disease; R00.0 Tachycardia, unspecified; F17.210 Nicotine dependence, cigarettes, uncomplicated
CPT/HCPCS: 36415; 71045; 74177; 80053; 81001; 82274; 83605; 83690; 85025; 87040; 87081; 87086; 87430; 93005; 96361; 96365; 96366; 96367; 96375; C9113; J0692; J2270; J2405; J3370

== ENCOUNTER 2023-07-19 10:17 | Emergency (ER) | payer BC, SELFPAY ==
[2023-07-19] MEDS ORDERED: diphenhydrAMINE 50 MG/ML VIAL ONE (10:24)
[2023-07-19] MEDS ORDERED: Sodium Chloride 0.9% 1,000 ML ONE (10:24)
[2023-07-19] MEDS ORDERED: Dexamethasone 10 MG/ML VIAL ONE (10:24)
[2023-07-19] MEDS ORDERED: Famotidine/PF 20 mg/2ml Vial ONE (10:25)
[2023-07-19] MEDS ORDERED: Lorazepam 1 MG TAB ONE (10:56)
[2023-07-19 11:15] LABS: #Monocytes 0.3 thou/uL (0.11-0.59); #Neutrophils 5.6 thou/uL (1.40-6.50); %Basophils 0.5 % (0.0-1.0); %Eosinophils 0.4 % (0.0-10.0); %Lymphocytes 14.6 % (21.0-51.0); %Monocytes 4.8 % (0.0-10.0); %Neutrophils 79.6 % (42.0-75.0); Hematocrit 29.7 % (36.0-47.0); Hemoglobin 8.9 g/dL (12.0-16.0); Mean Corpuscular HGB CONC 30.1 g/dL (32.0-36.0); Mean Platelet Volume 6.3 fL (7.4-10.4); Platelet Count 328 10x3/uL (130-400); RBC Distribution Width 16.3 % (11.5-14.5); Red Blood Cell (RBC) Count 3.19 mill/uL (4.20-5.40)
[2023-07-19 11:26] LABS: Anion Gap 16 mmol/L (10-20); BUN (Urea Nitrogen) 26 mg/dL (7.0-18.7); Calc. Creatinine Clearance 0 mL/min (70-130); Calcium 9.2 mg/dL (7.8-10.44); Carbon Dioxide 22 mmol/L (22-29); Chloride 104 mmol/L (98-107); Estimated GFR 73; Glucose 94 mg/dL (70-105); Potassium 3.4 mmol/L (3.5-5.1); Sodium 139 mmol/L (136-145)
[2023-07-19 11:30] LABS: Troponin I Less than 0.010 ng/mL (< 0.028)
== END 2023-07-19 12:15 | disposition home or self-care (01) ==
LOC: MADERS 10:17
DX: T78.40XA Allergy, unspecified, initial encounter (principal); F41.9 Anxiety disorder, unspecified; B20 Human immunodeficiency virus [HIV] disease; F17.210 Nicotine dependence, cigarettes, uncomplicated
CPT/HCPCS: 36415; 71045; 80048; 84484; 85025; 96361; 96374; 96375; J1100; J1200; J7050; S0028

== ENCOUNTER 2023-09-20 18:07 | Emergency (ER) | payer SELFPAY ==
[2023-09-20] MEDS ORDERED: HYDROcodone/Acetaminophen 5/325 mg Tablet ONE (18:57)
[2023-09-20] MEDS ORDERED: Orphenadrine Citrate 60 MG/2 ML VIAL ONE (18:57)
[2023-09-20] MEDS ORDERED: Lidocaine 4% Patch ONE (18:57)
== END 2023-09-20 19:30 | disposition home or self-care (01) ==
LOC: MADERS 18:07
DX: S39.011A Strain of muscle, fascia and tendon of abdomen, initial encounter (principal); X58.XXXA Exposure to other specified factors, initial encounter
CPT/HCPCS: 96372; 99283; J2360

== ENCOUNTER 2023-10-19 01:00 | Emergency (ER) | payer BC ==
[2023-10-19 03:10] LABS: Eosinophils 1 % (0-10); Hematocrit 33.7 % (36.0-47.0); Hemoglobin 10.3 g/dL (12.0-16.0); Lymphocytes 33 % (21-51); MDiff Complete? YES; Mean Corpuscular HGB CONC 30.5 g/dL (32.0-36.0); Mean Corpuscular Volume 88.6 fl (78.0-98.0); Mean Platelet Volume 6.7 fL (7.4-10.4); Monocytes 10 % (0-10); Neutrophil 56 % (42-75); Platelet Count 149 10x3/uL (130-400); RBC Distribution Width 13.1 % (11.5-14.5); White Blood Cell (WBC) Count 4.5 10x3/uL (4.8-10.8)
[2023-10-19 03:15] LABS: ALT (SGPT) 20 U/L (8-55); AST (SGOT) 24 U/L (5-34); Alkaline Phosphatase 70 U/L (40-110); Anion Gap 15 mmol/L (10-20); BUN (Urea Nitrogen) 9 mg/dL (7.0-18.7); Bilirubin, Total 0.3 mg/dL (0.2-1.2); Calc. Creatinine Clearance 0 mL/min (70-130); Calcium 8.6 mg/dL (7.8-10.44); Carbon Dioxide 21 mmol/L (22-29); Chloride 110 mmol/L (98-107); Estimated GFR 92; Globulin 5.5 g/dL (2.4-3.5); Glucose 94 mg/dL (70-105); Protein, Total 8.5 g/dL (6.0-8.3); Sodium 143 mmol/L (136-145); Troponin I 0.011 ng/mL (< 0.028)
== END 2023-10-19 08:34 | disposition short-term general hospital (02) ==
LOC: MADERS 01:00
DX: B37.81 Candidal esophagitis (principal); E86.0 Dehydration; Z21 Asymptomatic human immunodeficiency virus [HIV] infection status
CPT/HCPCS: 71045; 80053; 83605; 84484; 85025; 93005; 96361; 96365; 96375

== ENCOUNTER 2023-12-31 09:16 | Emergency (ER) | payer BC | END 2023-12-31 11:15 | disposition home or self-care (01) | LOC: MADERS 09:16 | DX: J06.9 Acute upper respiratory infection, unspecified (principal); Z21 Asymptomatic human immunodeficiency virus [HIV] infection status | CPT/HCPCS: 71046; 87081; 87400; 87426; 87430 ==

== ENCOUNTER 2024-02-12 10:30 | Emergency (ER) | payer BC ==
[2024-02-12] MEDS ORDERED: Sodium Chloride 0.9% 1,000 ML ONE (11:45)
[2024-02-12] MEDS ORDERED: Acetaminophen 325 MG TAB ONE (11:45)
[2024-02-12] MEDS ORDERED: Prochlorperazine 10 MG/2 ML VIAL ONE (11:45)
[2024-02-12 11:58] LABS: Bilirubin Negative (Negative); Blood, Urine Negative (Negative); Clarity Clear (Clear); Glucose, Urine (Dipstick) Negative (Negative); Ketone, Urine Negative (Negative); Leukocyte Trace (Negative); Nitrite Negative (Negative); Protein, Urine (Dipstick) Negative (Neg-Trace); Specific Gravity, Urine 1.025 (1.005-1.030); Urobilinogen 0.2 mg/dL (Less than 2)
[2024-02-12 11:58] LABS: #Basophils 0.1 thou/uL (0.0-0.2); #Eosinophils 0.1 thou/uL (0.0-0.7); #Lymphocytes 2.1 thou/uL (1.20-3.40); #Monocytes 0.3 thou/uL (0.11-0.59); %Eosinophils 1.5 % (0.0-10.0); %Lymphocytes 38.6 % (21.0-51.0); %Monocytes 5.3 % (0.0-10.0); %Neutrophils 53.7 % (42.0-75.0); Hematocrit 35.4 % (36.0-47.0); Hemoglobin 11.1 g/dL (12.0-16.0); Mean Corpuscular HGB CONC 31.4 g/dL (32.0-36.0); Mean Corpuscular Hemoglobin 28.7 pg (27.0-31.0); Mean Corpuscular Volume 91.3 fl (78.0-98.0); Mean Platelet Volume 9.2 fL (7.4-10.4); Platelet Count 188 10x3/uL (130-400); RBC Distribution Width 12.3 % (11.5-14.5); Red Blood Cell (RBC) Count 3.88 mill/uL (4.20-5.40); White Blood Cell (WBC) Count 5.5 10x3/uL (4.8-10.8)
[2024-02-12 12:05] LABS: RBC/HPF 0-3 HPF (0-3)
[2024-02-12 12:06] LABS: Bacteria/HPF Rare-Few HPF (None Seen); CAUTI Indications for Culture Dysuria,urgency,freq; Squamous Epithelial 0-3 HPF (0-3); WBC/HPF 0-3 HPF (0-3)
[2024-02-12 12:07] LABS: Urine Culture Reflex No No
[2024-02-12 12:08] LABS: Pregnancy Test - Urine (BHCG) Negative (Negative); Pregu Control Background? CLEAR/WHITE (CLR/WHITE); Pregu Control Bar Appear? YES (CONTROL BAR); Specific Gravity 1.025 (1.002-1.036)
[2024-02-12 12:10] LABS: ALT (SGPT) 15 U/L (8-55); AST (SGOT) 21 U/L (5-34); Albumin 3.4 g/dL (3.5-5.0); Alkaline Phosphatase 97 U/L (40-110); Anion Gap 11 mmol/L (10-20); BUN (Urea Nitrogen) 15 mg/dL (7.0-18.7); Bilirubin, Total 0.2 mg/dL (0.2-1.2); Calc. Creatinine Clearance 0 mL/min (70-130); Calcium 8.9 mg/dL (7.8-10.44); Carbon Dioxide 23 mmol/L (22-29); Chloride 112 mmol/L (98-107); Estimated GFR 84; Globulin 5.4 g/dL (2.4-3.5); Glucose 98 mg/dL (70-105); Lipase 28 U/L (8-78); Potassium 3.5 mmol/L (3.5-5.1); Protein, Total 8.8 g/dL (6.0-8.3); Sodium 142 mmol/L (136-145); Troponin I Less than 0.010 ng/mL (< 0.028)
== END 2024-02-12 13:22 | disposition home or self-care (01) ==
LOC: MADERS 10:30
DX: F12.90 Cannabis use, unspecified, uncomplicated (principal); G44.209 Tension-type headache, unspecified, not intractable
CPT/HCPCS: 71045; 74177; 80053; 81001; 81025; 83690; 84484; 85025; 93005; 96374; J0780; J7030; Q9967

== ENCOUNTER 2024-03-25 15:24 | Emergency (ER) | payer BC ==
[~2024-03-25 15:24] MED LIST changes: +Sodium Chloride 0.9% 100 ML BAG ONE
[2024-03-25] MEDS ORDERED: Acetaminophen 500 MG TAB ONE (15:57)
[2024-03-25] MEDS ORDERED: Ondansetron PF 4 MG/2 ML Vial ONE (15:57)
[2024-03-25 16:19] LABS: Bicarbonate (HCO3v) 29.2 mmol/L (22.0-28.0); CO2 Tension (PvCO2) 45.3 mmHg (42.0-51.0); Calcium, Ionized 1.21 mmol/L (1.15-1.33); Chloride 109 mmol/L (98-107); Potassium 3.8 mmol/L (3.5-5.1); Sodium 146 mmol/L (138-145); T. Carbon Dioxide 30.6 mmol/L (22.0-28.0); vO2 Saturation-calc 99.6 % (60.0-85.0)
[2024-03-25 16:23] LABS: Troponin I Less than 0.010 ng/mL (< 0.028)
[2024-03-25 16:30] LABS: Chloride 108 mmol/L (98-107); Potassium 3.4 mmol/L (3.5-5.1); Sodium 140 mmol/L (136-145)
[2024-03-25 16:43] LABS: Anion Gap 13 mmol/L (10-20); BUN (Urea Nitrogen) 12 mg/dL (7.0-18.7); Calc. Creatinine Clearance 0 mL/min (70-130); Carbon Dioxide 22 mmol/L (22-29); Estimated GFR 96; Glucose 83 mg/dL (70-105)
[2024-03-25] MEDS ORDERED: Morphine 4 MG/ML VIAL ONE (17:47)
[2024-03-25 17:56] LABS: Bilirubin Negative (Negative); Blood, Urine Negative (Negative); Glucose, Urine (Dipstick) Negative (Negative); Ketone, Urine Negative (Negative); Leukocyte Trace (Negative); Nitrite Negative (Negative); Protein, Urine (Dipstick) 30 mg/dL (Neg-Trace); Specific Gravity, Urine 1.015 (1.005-1.030); Urobilinogen 0.2 mg/dL (Less than 2)
[2024-03-25 17:57] LABS: Clarity Hazy (Clear)
[2024-03-25 18:03] LABS: Amphetamine Not Detected (NotDetected); Barbiturates Screen Not Detected (NotDetected); Benzodiazepine Screen Detected (NotDetected); Cocaine Metabolite Screen Not Detected (NotDetected); Methadone Not Detected (NotDetected); Methamphetamine Not Detected (NotDetected); Opiate Screen Not Detected (NotDetected); Oxycodone Screen Not Detected (NotDetected); Phencyclidine (PCP) Not Detected (NotDetected); THC/Cannabinoid Screen Detected (NotDetected); Tricyclic Screen Not Detected (NotDetected)
[2024-03-25 18:10] LABS: Bacteria/HPF 1+ HPF (None Seen); CAUTI Indications for Culture Alt mental st,lethar; RBC/HPF None Seen HPF (0-3)
[2024-03-25 18:11] LABS: Mucous/LPF Few LPF (<2+); Urine Culture Reflex No No
[2024-03-25] MEDS ORDERED: Ondansetron ODT 4 MG TAB ONE (19:46)
== END 2024-03-25 20:25 | disposition home or self-care (01) ==
LOC: MADERS 15:24
DX: J02.9 Acute pharyngitis, unspecified (principal); K08.89 Other specified disorders of teeth and supporting structures; R11.0 Nausea; F41.9 Anxiety disorder, unspecified; R56.9 Unspecified convulsions; B20 Human immunodeficiency virus [HIV] disease; F12.90 Cannabis use, unspecified, uncomplicated
CPT/HCPCS: 71045; 71275; 80048; 80306; 81001; 82330; 82803; 84484; 85014; 85379; 87081; 87428; 87430; 93005; 96374; 96375; J2270; J2405; Q0162; Q9967

== ENCOUNTER 2024-04-02 14:23 | Emergency (ER) | payer BC ==
[~2024-04-02 14:23] MED LIST changes: +Dextrose 5 %-0.45 % NaCl 1000 ml Bag ONE; -Iopamidol 370 76% 100 ML VIAL ONE; -Sodium Chloride 0.9% 100 ML BAG ONE
[2024-04-02] MEDS ORDERED: Ondansetron PF 4 MG/2 ML Vial ONE ×2 (15:36→18:55)
[2024-04-02] MEDS ORDERED: Morphine 4 MG/ML VIAL ONE ×2 (15:36→18:55)
[2024-04-02] MEDS ORDERED: Sodium Chloride 0.9% 1,000 ML ONE (15:36)
[2024-04-02 15:43] LABS: Bilirubin Negative (Negative); Blood, Urine Negative (Negative); Glucose, Urine (Dipstick) Negative (Negative); Ketone, Urine Negative (Negative); Leukocyte Small (Negative); Nitrite Negative (Negative); Protein, Urine (Dipstick) 30 mg/dL (Neg-Trace); Specific Gravity, Urine 1.015 (1.005-1.030)
[2024-04-02 15:44] LABS: Clarity Hazy (Clear)
[2024-04-02 15:47] LABS: Bacteria/HPF 1+ HPF (None Seen); CAUTI Indications for Culture Immunosuppressed; RBC/HPF 0-3 HPF (0-3)
[2024-04-02 15:49] LABS: Urine Culture Reflex Yes Yes
[2024-04-02 15:50] LABS: Base Excess-Venous 7.6 mmol/L (-2.0 to 3.0); Bicarbonate (HCO3v) 30.8 mmol/L (22.0-28.0); CO2 Tension (PvCO2) 37.2 mmHg (42.0-51.0); Calcium, Ionized 1.08 mmol/L (1.15-1.33); Chloride 107 mmol/L (98-107); Hemoglobin - Calc 11.8 g/dL (12.0-16.0); Potassium 4.6 mmol/L (3.5-5.1); Sodium 145 mmol/L (138-145); T. Carbon Dioxide 31.9 mmol/L (22.0-28.0); vO2 Saturation-calc 92.9 % (60.0-85.0)
[2024-04-02 15:51] LABS: Band 6 % (5-11); Hematocrit 30.8 % (36.0-47.0); Hemoglobin 9.9 g/dL (12.0-16.0); Hypochromia SLIGHT = 6-15 cells (100X) (0-5/hpf); Lymphocytes 38 % (21-51); MDiff Complete? YES; Mean Corpuscular Hemoglobin 27.9 pg (27.0-31.0); Mean Corpuscular Volume 87.1 fl (78.0-98.0); Mean Platelet Volume 8.2 fL (7.4-10.4); Monocytes 6 % (0-10); Neutrophil 49 % (42-75); Platelet Adequacy Comment Appears Adequate; Platelet Count 171 10x3/uL (130-400); RBC Distribution Width 12.4 % (11.5-14.5); Red Blood Cell (RBC) Count 3.54 mill/uL (4.20-5.40); White Blood Cell (WBC) Count 4.7 10x3/uL (4.8-10.8)
[2024-04-02 15:53] LABS: ALT (SGPT) 45 U/L (Less than 34); AST (SGOT) 35 U/L (11-34); Albumin 3.5 g/dL (3.1-4.5); Alkaline Phosphatase 189 U/L (40-110); Anion Gap 15 mmol/L (10-20); BUN (Urea Nitrogen) 8 mg/dL (7.0-18.7); Bilirubin, Total 0.4 mg/dL (0.3-1.2); Calc. Creatinine Clearance 0 mL/min (70-130); Calcium 8.9 mg/dL (7.8-10.44); Carbon Dioxide 24 mmol/L (22-29); Chloride 106 mmol/L (98-107); Estimated GFR 99; Globulin 5.7 g/dL (2.4-3.5); Glucose 88 mg/dL (70-105); Potassium 3.4 mmol/L (3.5-5.1); Protein, Total 9.2 g/dL (6.0-8.3); Sodium 142 mmol/L (136-145)
[2024-04-02] MEDS ORDERED: Sodium Chloride 0.9% 100 ML ONE (15:56)
[2024-04-02] MEDS ORDERED: cefTRIAXone (ROCEPHIN) 1 GM VIAL ONE (15:56)
== END 2024-04-02 19:55 | disposition short-term general hospital (02) ==
LOC: MADERS 14:23
DX: B20 Human immunodeficiency virus [HIV] disease (principal); B37.81 Candidal esophagitis; E86.0 Dehydration; Z55.6 Problems related to health literacy
CPT/HCPCS: 80053; 81001; 82330; 82435; 82803; 84132; 84295; 85014; 85025; 87077; 87086; 87186; 96361; 96365; 96375; 96376; J0696; J2270; J2405; J7030; J7042

== ENCOUNTER 2024-09-29 09:03 | Emergency (ER) | payer OTHER ==
[2024-09-29] MEDS ORDERED: levETIRAcetam 500 MG (5 mL) VIAL ONE (09:23)
[2024-09-29 09:49] LABS: #Basophils 0.0 thou/uL (0.0-0.2); #Eosinophils 0.1 thou/uL (0.0-0.7); #Lymphocytes 2.2 thou/uL (1.20-3.40); #Monocytes 0.4 thou/uL (0.11-0.59); #Neutrophils 2.4 thou/uL (1.40-6.50); %Basophils 0.6 % (0.0-1.0); %Eosinophils 1.2 % (0.0-10.0); %Lymphocytes 43.5 % (21.0-51.0); %Monocytes 7.1 % (0.0-10.0); %Neutrophils 47.5 % (42.0-75.0); Hematocrit 32.9 % (36.0-47.0); Hemoglobin 10.6 g/dL (12.0-16.0); Mean Corpuscular Hemoglobin 29.6 pg (27.0-31.0); Mean Corpuscular Volume 92.1 fl (78.0-98.0); Platelet Count 234 10x3/uL (130-400); Red Blood Cell (RBC) Count 3.57 mill/uL (4.20-5.40); White Blood Cell (WBC) Count 5.1 10x3/uL (4.8-10.8)
[2024-09-29 09:58] LABS: Bicarbonate (HCO3v) 28.9 mmol/L (22.0-28.0); CO2 Tension (PvCO2) 44.2 mmHg (42.0-51.0); Calcium, Ionized 1.16 mmol/L (1.15-1.33); Chloride 112 mmol/L (98-107); Hemoglobin - Calc 11.0 g/dL (12.0-16.0); Potassium 3.6 mmol/L (3.5-5.1); Sodium 146 mmol/L (138-145); T. Carbon Dioxide 30.3 mmol/L (22.0-28.0); vO2 Saturation-calc 99.2 % (60.0-85.0)
[2024-09-29 10:03] LABS: BHCG - Serum Negative (NEGATIVE); Pregs Control Background? CLEAR/WHITE (CLR/WHITE); Pregs Control Bar Appear? YES (CONTROL BAR)
[2024-09-29] MEDS ORDERED: Droperidol 5 MG/2 ML VIAL ONE (10:17)
[2024-09-29 10:18] LABS: Troponin I Less than 0.010 ng/mL (< 0.028)
[2024-09-29 11:11] LABS: Glucose, Urine (Dipstick) Negative (Negative); Leukocyte Trace (Negative); Protein, Urine (Dipstick) Negative (Neg-Trace); Specific Gravity, Urine 1.020 (1.005-1.030)
[2024-09-29 11:17] LABS: Bacteria/HPF 1+ HPF (None Seen); CAUTI Indications for Culture Pelvic or flank pain; RBC/HPF 0-3 HPF (0-3)
[2024-09-29 11:18] LABS: Urine Culture Reflex No No
[2024-09-29 12:31] LABS: Lipase 27 U/L (8-78)
[2024-09-29 12:34] LABS: Acetaminophen Less than 10 mcg/mL (Less than 10); Salicylate Less than 8.0 mg/dL (Less than 8.0)
== END 2024-09-29 12:00 | disposition home or self-care (01) ==
LOC: MADERS 09:03
DX: N39.0 Urinary tract infection, site not specified (principal); R11.2 Nausea with vomiting, unspecified; J45.909 Unspecified asthma, uncomplicated; Z79.51 Long term (current) use of inhaled steroids; Z79.899 Other long term (current) drug therapy
CPT/HCPCS: 36415; 70450; 71045; 80307; 81001; 82330; 82435; 82803; 83690; 84132; 84295; 84484; 84703; 85014; 85025; 93005; 96361; 96365; 96375; J1790; J1953; J2550

== ENCOUNTER 2024-10-04 04:30 | Emergency (ER) | payer OTHER ==
[2024-10-04 05:24] LABS: #Basophils 0.1 thou/uL (0.0-0.2); #Eosinophils 0.1 thou/uL (0.0-0.7); #Lymphocytes 2.8 thou/uL (1.20-3.40); #Monocytes 0.6 thou/uL (0.11-0.59); #Neutrophils 2.8 thou/uL (1.40-6.50); %Basophils 0.9 % (0.0-1.0); %Eosinophils 1.8 % (0.0-10.0); %Lymphocytes 44.6 % (21.0-51.0); %Monocytes 8.9 % (0.0-10.0); %Neutrophils 43.7 % (42.0-75.0); Hematocrit 34.5 % (36.0-47.0); Hemoglobin 10.9 g/dL (12.0-16.0); Mean Corpuscular Hemoglobin 29.4 pg (27.0-31.0); Mean Corpuscular Volume 92.6 fl (78.0-98.0); Platelet Count 258 10x3/uL (130-400); Red Blood Cell (RBC) Count 3.73 mill/uL (4.20-5.40); White Blood Cell (WBC) Count 6.4 10x3/uL (4.8-10.8)
[2024-10-04 05:40] LABS: ALT (SGPT) 11 U/L (Less than 34); AST (SGOT) 17 U/L (11-34); Albumin 3.6 g/dL (3.1-4.5); Alkaline Phosphatase 86 U/L (40-110); Anion Gap 15 mmol/L (10-20); BUN (Urea Nitrogen) 19 mg/dL (7.0-18.7); Bilirubin, Total 0.2 mg/dL (0.3-1.2); Calc. Creatinine Clearance 0 mL/min (70-130); Calcium 9.2 mg/dL (7.8-10.44); Carbon Dioxide 28 mmol/L (22-29); Chloride 110 mmol/L (98-107); Globulin 4.4 g/dL (2.4-3.5); Glucose 95 mg/dL (70-105); Potassium 4.0 mmol/L (3.5-5.1); Sodium 149 mmol/L (136-145)
[2024-10-04] MEDS ORDERED: Prochlorperazine 10 MG/2 ML VIAL ONE (05:42)
[2024-10-04 05:43] LABS: Troponin I Less than 0.010 ng/mL (< 0.028)
[2024-10-04] MEDS ORDERED: Divalproex Sodium 250 MG ER.TAB ONE (07:15)
== END 2024-10-04 07:34 | disposition home or self-care (01) ==
LOC: MADERS 04:30
DX: F43.22 Adjustment disorder with anxiety (principal); F12.10 Cannabis abuse, uncomplicated; R11.2 Nausea with vomiting, unspecified; J45.909 Unspecified asthma, uncomplicated; R56.9 Unspecified convulsions; Z21 Asymptomatic human immunodeficiency virus [HIV] infection status; Z55.6 Problems related to health literacy; Z79.51 Long term (current) use of inhaled steroids
CPT/HCPCS: 80053; 83690; 84484; 85025; 96365; 96375; J0780; J2060; J2550; J7030

== ENCOUNTER 2024-11-05 19:19 | Emergency (ER) | payer MEDICARE, MEDICAID | END 2024-11-05 23:10 | disposition home or self-care (01) | LOC: MADERS 19:19 → EEVIPCON 19:19 → MADERS 23:10 | DX: F43.20 Adjustment disorder, unspecified (principal) | CPT/HCPCS: 99285 ==

== ENCOUNTER 2025-01-01 10:22 | Emergency (ER) | payer SELFPAY | END 2025-01-01 10:30 | disposition left against medical advice (07) | LOC: MADERS 10:22 | DX: Z53.21 Procedure and treatment not carried out due to patient leaving prior to being seen by health care provider (principal) ==